=== PATIENT | male | born 1930 | race Caucasian/White ===

== ENCOUNTER 2017-01-05 18:20 | Emergency (ER) | payer MEDICARE, MEDICAID ==
--- NOTE | 2017-01-05 18:41 | EDM.PDOC ---
ED HPI GENERAL MEDICAL PROBLEM - General Chief Complaint: General Stated Complaint: abd pain, "sounds raspy" Time Seen by Provider: 01/05/17 18:25 Source of Information: Reports: Patient, Family History Limitations: Reports: No Limitations - History of Present Illness INITIAL COMMENTS - FREE TEXT/NARRATIVE: History and physical: History of present illness: [Patient brought to the emergency room by his daughter. She states that they were driving through town from [place] to [facility] live and she decided to stop into the ER to have him checked out for raspiness in his voice. He has had a cough for the past several days and today he is complaining of midabdominal pain, below his ribs. Both symptoms have been present for the past 2-3 days. It is worse with coughing. Has not recently felt ill or had symptoms of infection per daughter's report. he has been coughing up white colored sputum for which he has been taking Mucinex. Appetite is decreased as he has been feeling gassy. Denies headache or sore throat runny nose and earaches. No dizziness. No nausea or vomiting. Last bowel movement was this morning and was looser than usual. Daughter Denies history of dementia, the patient being forgetful at times. Has a history of pneumonia and COPD. Quit smoking 9 years ago.] Review of Systems: As per history of present illness and below otherwise all systems reviewed and negative. Past medical history: As per history of present illness and as reviewed below otherwise noncontributory. Surgical history: As per history of present illness and is reviewed below other joyner noncontributory. Social history: No reported history of drug or alcohol abuse. Family history: As per history of present illness and is reviewed below otherwise noncontributory. Physical exam: Gen.: Well-developed well-nourished male in no acute distress. HEENT: Atraumatic, normocephalic. TMs are pearly mitchell bilaterally. Conjunctiva clear. Oral mucous membranes are pink and moist tonsillar swelling erythema or exudate. Neck is supple no lymphadenopathy. Lungs: Mild rhonchi and wet sounding lungs throughout, bilaterally on auscultation. breath sounds equal bilaterally, chest and ribs are nontender with palpation. Heart: S1-S2, regular rate and rhythm. Abdomen: Bowel sounds are normoactive throughout. left-sided abdomen is mildly distended. Is tender with palpation over his mid abdomen just above his belly button. No masses guarding or rebound appreciated. No CVA tenderness. Genitourinary: Deferred. Rectal: Deferred. Extremities: atraumatic, and without deformity. he walks without difficulty without assistance. negative for cords or calf pain. Neurovascular unremarkable. Neuro: Awake, alert, oriented. Thought process is clear. Answers questions appropriately. Motor and sensory unremarkable throughout. Exam nonfocal. Diagnostics: [CBC, CMP, amylase, UA, TSH, chest x-ray, CT abdomen and pelvis with IV contrast ] Impression: [Left ninth rib fracture] Plan: [White blood cell count elevated at 11.9. Amylase normal at 63. BUN and creatinine 20 and 1.6. UA normal. TSH normal at 1.5. Chest x-ray appears negative for pneumonia, pending radiologist's report. CT abdomen and pelvis shows an acute ninth rib fracture. No bowel obstruction or constipation noted. Stable hydrocele. This is reviewed with patient and fracture is likely due to coughing from COPD. He will be discharged home with recommendations for Tylenol and ibuprofen. Followup with Dr. Trevino later this week. Patient and daughter are understanding of today's discussion. All questions are answered and concerns are addressed.] Definitive disposition and diagnosis is appropriate pending reevaluation and review of above. Upper Abdomen Pain Score (Numeric/FACES): 10 - Related Data Allergies Allergy/AdvReac Type Severity Reaction Status Date / Time No Known Allergies Allergy Verified 01/05/17 18:28 Home Meds: Home Meds Acetaminophen [Tylenol Extra Strength] 1,000 mg PO Q4H PRN 11/12/13 [History] Antiox#10/Om3/DHA/EPA/Lut/Zeax [I-Caps with Lutein-Belford 3 SFG] 1 each PO BID [History] Ascorbic Acid [Vitamin C] 1,000 mg PO DAILY 11/12/13 [History] Bimatoprost [Lumigan 0.01% Ophth Soln] 1 drop EYEBOTH BEDTIME 11/12/13 [History] Calcium Carb/D3/Magnesium/Zinc [Praveen Mag Zinc + D3] 1 each PO BID 11/12/13 [ History] Cholecalciferol (Vitamin D3) [Vitamin D3] 2,000 unit PO DAILY 11/12/13 [History] Diltiazem [Dilacor XR] 1 cap PO DAILY 11/12/13 [History] Docusate Sodium [Colace] 100 mg PO DAILY 11/12/13 [History] Escitalopram [Lexapro] 10 mg PO DAILY 11/12/13 [History] Fenofibrate Nanocrystallized [Fenofibrate] 145 mg PO DAILY 11/12/13 [History] Fish Oil/Belford-3 Fatty Acids [Fish Oil 1,000 MG] 1 each PO DAILY 11/12/13 [ History] Gabapentin [Neurontin] 300 mg PO BEDTIME 11/12/13 [History] Lactobacillus Acidophilus [Probiotic] 1 each PO DAILY 11/12/13 [History] Meloxicam 7.5 mg PO DAILY 11/12/13 [History] Triamterene/Hydrochlorothiazid [Triamterene-HCTZ 37.5-25 MG] 1 each PO DAILY 02/18 [History] Vitamin B Complex 1 each PO BID 11/12/13 [History] atorvaSTATin [Lipitor] 10 mg PO DAILY 11/12/13 [History] Social & Family History - Tobacco Use Years of Tobacco use: 68 Used Tobacco, but Quit: Yes Month Tobacco Last Used: 2008 Second Hand Smoke Exposure: No - Alcohol Use Days Per Week of Alcohol Use: 2 Number of Drinks Per Day: 1 Total Drinks Per Week: 2 - Recreational Drug Use Recreational Drug Use: No ED ROS GENERAL - Review of Systems Review Of Systems: ROS reveals no pertinent complaints other than HPI. ED EXAM, GENERAL - Physical Exam Exam: See Below Course - Vital Signs Last Recorded V/S: Last Vital Signs Temp 98.0 F 01/05/17 18:36 Pulse 83 01/05/17 18:36 Resp 20 01/05/17 18:36 BP 160/74 H 01/05/17 18:36 Pulse Ox 93 L 01/05/17 18:36 - Orders/Labs/Meds Orders: Active Orders 24 hr Category Date Time Status Abdomen Pelvis w Cont [CT] Stat Exams 01/05/17 19:58 Taken Chest 2V [CR] Stat Exams 01/05/17 18:58 Taken Labs: Laboratory Tests 01/05/17 01/05/17 01/05/17 Range/Units 18:41 18:41 19:38 WBC 11.9 H (5.0-10.0) 10^3/uL RBC 3.81 L (4.50-6.00) 10^6/uL Hgb 12.2 L (14.0-18.0) g/dL Hct 36.5 L (40.0-54.0) % MCV 95.8 H (82.0-94.0) fL MCH 32.0 (27.0-32.0) pg MCHC 33.4 (33.0-38.0) g/dL RDW Coeff of Cee 13.4 (11.0-15.0) % Plt Count 297 (150-400) 10^3/uL Neut % (Auto) 72.2 (35-85) % Lymph % (Auto) 14.8 (10-55) % Darlington % (Auto) 11.2 (0-16) % Eos % (Auto) 1.5 (0-5) % Baso % (Auto) 0.3 (0-3) % Neut # (Auto) 8.55 H (1.80-7.00) 10^3/uL Lymph # (Auto) 1.75 (1.00-4.80) 10^3/uL Darlington # (Auto) 1.33 H (0.00-0.80) 10^3/uL Eos # (Auto) 0.18 (0.00-0.45) 10^3/uL Baso # (Auto) 0.04 10^3/uL Sodium 133 L (136-145) mEq/L Potassium 4.3 (3.5-5.0) mEq/L Chloride 99 (98-106) mEq/L Carbon Dioxide 31 (21-32) mmol/L BUN 20 H (7-18) mg/dL Creatinine 1.6 H (0.7-1.3) mg/dL Est Cr Clr Drug Dosing 31.91 mL/min Estimated GFR (MDRD) 41 L (>=60) mL/min Glucose 114 H (75-99) mg/dL Calcium 9.2 (8.4-10.1) mg/dL Total Bilirubin 0.3 (0.0-1.0) mg/dL AST 20 (15-37) U/L ALT 21 (12-78) U/L Alkaline Phosphatase 40 L (46-116) U/L Total Protein 6.6 (6.4-8.2) g/dL Albumin 3.2 L (3.4-5.0) g/dL Amylase 63 (25-115) U/L TSH, Ultra Sensitive 1.50 (0.36-5.60) uIU/mL Urine Color Yellow (YELLOW) Urine Appearance Clear (CLEAR) Urine pH 7.5 (4.5-8.0) Ur Specific Bard 1.015 (1.003-1.020) Urine Protein Negative (NEGATIVE) mg/dL Urine Glucose (UA) Negative (NEGATIVE) mg/dL Urine Ketones Negative (NEGATIVE) mg/dL Urine Occult Blood Negative (NEGATIVE) Urine Nitrite Negative (NEGATIVE) Urine Bilirubin Negative (NEGATIVE) Urine Urobilinogen 0.2 (0.2-1.0) EU/dL Ur Leukocyte Esterase Negative (NEGATIVE) Urine RBC Not seen (0-5) /HPF Urine WBC Not seen (0-5) /HPF Meds: Medications Discontinued Medications Generic Name Dose Route Start Last Admin Trade Name Freq PRN Reason Stop Dose Admin Iopamidol 100 ml 01/05/17 19:59 01/05/17 20:20 Isovue-300 (61%) IVPUSH 01/05/17 20:00 100 ml ONETIME ONE Administration Departure - Departure Time of Disposition: 21:20 Disposition: Home, Self-Care 01 Condition: Good Clinical Impression: Rib fracture Qualifiers: Encounter type: initial encounter Rib fracture type: single rib Fracture type: closed Laterality: left Qualified Code(s): S22.32XA - Fracture of one rib, left side, initial encounter for closed fracture - Discharge Information Forms: ED Department Discharge Additional Instructions: The following information is given to patients seen in the emergency department who are being discharged home. This information is to outline your options for follow-up care and provides all patient seen in our emergency department with a follow-up referral. The need for follow-up, as well as the timing and circumstances, are variable depending upon the specifics of each emergency department visit. If you don't have a primary care physician on staff, we will provide you with a referral. We always advise to contact your personal physician following an emergency department visit to inform them of the circumstances of the visit and for follow-up with them and/or the need for any referrals to a consulting specialist. The emergency department will also refer you to a specialist when appropriate. This referral assures that you have the opportunity for follow-up care with a specialist. All of these measures are taken in an effort to provide you with optimal care, which includes your follow-up. Under all circumstances we always encourage you to contact your private physician who remains a resource for coordinating your care. When calling for follow-up care, please make the office aware that this follow-up is from your recent emergency room visit. If for any reason you are refused follow-up please contact the [facility] emergency department at [phone] and ask to speak to the emergency department nurse. [facility] [address] [place] [address] Followup with your primary care provider or at the clinic listed above in 48-72 hours. Return to ER as needed as discussed. - My Orders Last 24 Hours: My Active Orders 01/05/17 18:58 Chest 2V [CR] Stat 01/05/17 19:58 Abdomen Pelvis w Cont [CT] Stat - Assessment/Plan Last 24 Hours: My Active Orders 01/05/17 18:58 Chest 2V [CR] Stat 01/05/17 19:58 Abdomen Pelvis w Cont [CT] Stat
[2017-01-05 18:50] VITALS: BP 160/74
[2017-01-05] MEDS ORDERED: Iopamidol 612 MG/ML 100 ML Bottle IVPUSH ONE (19:59)
== END 2017-01-05 21:45 | disposition home or self-care (01) ==
LOC: CC.ED 18:20
DX: S22.31XA Fracture of one rib, right side, initial encounter for closed fracture (principal); X58.XXXA Exposure to other specified factors, initial encounter; Z79.899 Other long term (current) drug therapy
CPT/HCPCS: 36415; 71020; 74177; 80053; 81001; 82150; 84443; 85025; 99285; Q9967; 99283